=== PATIENT | female | born 1970 | race African-American/Black ===

== ENCOUNTER 2018-01-24 19:36 | Emergency (ER) | payer BC ==
[2018-01-24] MEDS ORDERED: Adenosine* 3 MG/ML VIAL ONE (20:02)
[2018-01-24] MEDS ORDERED: NS 0.9% 1000 ML*IV.FLUID IV ONE (20:07)
[2018-01-24] MEDS ORDERED: Adenosine* 3 MG/ML VIAL IV PUSH ONE (20:07)
[2018-01-24] MEDS ORDERED: Metoprolol Tartrate TAB* 25 MG PO ONE (20:14)
[2018-01-24 21:23] VITALS: BP 129/87
--- NOTE | 2018-01-24 21:49 | ED ---
Ariel Delgado Stephanie, scribed for Eliel Shukla MD on 01/24/18 at 2016 . HPI Cardiac - HPI Summary HPI Summary: The pt is a 47 y/o F BIBA to the ED with c/o increased HR that began at 08:00 today. Symptoms include lightheadedness and blurred vision. The pt denies CP. She states she had palpitations earlier today that resolved shortly after onset. She reports she felt palpitations before dinner which resolved. The pt attempted to use the bathroom after dinner and experienced palpitations, became lightheaded and experienced blurred vision. Rhythm strip with SVT at 175 BPM. - History of Current Complaint Chief Complaint: EDDysrhythmPalp Stated Complaint: DIZZINESS Time Seen by Provider: 01/24/18 19:42 Hx Obtained From: Patient Onset/Duration: Started Hours Ago, Still Present Timing: Intermittent Current Severity: None Pain Intensity: 0 Pain Scale Used: 0-10 Numeric Aggravating Factor(s): Nothing Alleviating Factor(s): Nothing Associated Signs and Symptoms: Positive: Vision Changes, Lightheadedness. Negative: Chest Pain - Allergy/Home Medications Allergies/Adverse Reactions: Allergies Allergy/AdvReac Type Severity Reaction Status Date / Time lisinopril Allergy Coughing Verified 01/24/18 19:40 PMH/Surg Hx/FS Hx/Imm Hx Sensory History: Denies: Hx Legally Blind EENT History: Denies: Hx Deafness - Surgical History Surgery Procedure, Year, and Place: NONE Infectious Disease History: No Infectious Disease History: Denies: Traveled Outside the [place] in Last 30 Days - Family History Known Family History: Negative: Renal Disease - Social History Occupation: Unemployed Lives: With Family Review of Systems Negative: Fever Positive: Blurred Vision Positive: Palpitations. Negative: Chest Pain Neurological: Other - lightheadedness Negative: Slurred Speech All Other Systems Reviewed And Are Negative: Yes Physical Exam - Summary Physical Exam Summary: VITAL SIGNS: Reviewed. GENERAL: Patient is a well-developed and nourished FEMALE who is lying comfortable in the stretcher. Patient is not in any acute respiratory distress. HEAD AND FACE: No signs of trauma. No ecchymosis, hematomas or skull depressions. No sinus tenderness. EYES: PERRLA, EOMI x 2, No injected conjunctiva, no nystagmus. EARS: Hearing grossly intact. Ear canals and tympanic membranes are within normal limits. MOUTH: Oropharynx within normal limits. NECK: Supple, trachea is midline, no adenopathy, no JVD, no carotid bruit, no c- spine tenderness, neck with full ROM. CHEST: Symmetric, no tenderness at palpation LUNGS: Clear to auscultation bilaterally. No wheezing or crackles. CVS: Tachycardic, S1 and S2 present, no murmurs or gallops appreciated. ABDOMEN: Soft, non-tender. No signs of distention. No rebound no guarding, and no masses palpated. Bowel sounds are normal. EXTREMITIES: FROM in all major joints, no edema, no cyanosis or clubbing. NEURO: Alert and oriented x 3. No acute neurological deficits. Speech is normal and follows commands. SKIN: Dry and warm Triage Information Reviewed: Yes Vital Signs On Initial Exam: Initial Vitals Temp Pulse Resp BP Pulse Ox 97.5 F 155 18 115/85 98 01/24/18 19:37 01/24/18 19:37 01/24/18 19:37 01/24/18 19:37 01/24/18 19:37 Vital Signs Reviewed: Yes Diagnostics - Vital Signs Vital Signs Temp Pulse Resp BP Pulse Ox 01/24/18 19:37 97.5 F 155 18 115/85 98 - Laboratory Lab Statement: Any lab studies that have been ordered have been reviewed, and results considered in the medical decision making process. - EKG 19:39 Cardiac Rate: Tachycardia EKG Rhythm: Sinus Tachycardia - [address] Segment: Normal EKG Interpretation: No ST elevations 20:00 Cardiac Rate: Tachycardia EKG Rhythm: Sinus Tachycardia - [address] Segment: Normal EKG Interpretation: No ST elevations Disposition - Course Assessment/Plan: This patient is a 47-year-old female who presents to the emergency department with a chief complaint of dizziness and rapid heart rate. The patient has history of SVT. At arrival the patient is in SVT at 185 bpm. In the ER course we obtained an IV access and we administer adenosine 6 mg IV after symptoms resolve. The patient was given IV fluids she was observed for a couple hours and she continued to be asymptomatic. The patient is here with IV fluids, also she was given 1 metoprolol tablet. She will be discharged home with follow-up with cardiology. The patient was given a prescription for metoprolol. I discussed all the findings and test results with the patient. Patient was instructed to return to the emergency room immediately if any of the symptoms return or worsens. Plan of care was discussed with the patient and understands and agrees. All questions were answered at patient satisfaction. There were no further complaints or concerns. Lung exam before discharge: CTA B /L. Good air exchange. No wheezing or crackles heard. CVS: S1 and S2 present. No murmurs appreciated. Patient is alert and oriented x 3. Patient is hemodynamically stable. Patient will be discharged home with follow up PCP in the next 2-3 days - Diagnoses Provider Diagnoses: SVT (supraventricular tachycardia) Discharge - Sign-Out/Discharge Documenting (check all that apply): Discharge/Admit/Transfer - Discharge - Discharge Plan Condition: Stable Disposition: HOME Prescriptions: Metoprolol Tartrate TAB* [Lopressor TAB*] 12.5 mg PO DAILY #15 tab Patient Education Materials: Supraventricular Tachycardia (ED) Referrals: Armen Burgos MD [Medical Doctor] - 3 Days Additional Instructions: Return to the ED for new or worsening symptoms. - Billing Disposition and Condition Condition: STABLE Disposition: HOME The documentation as recorded by the Ariel payne Stephanie accurately reflects the service I personally performed and the decisions made by me, Eliel Shukla MD.
== END 2018-01-24 21:21 | disposition home or self-care (01) ==
LOC: ED 19:36
DX: I47.1 Supraventricular tachycardia (principal)
CPT/HCPCS: 93005; 96360; 96374; 99284; J0153